=== PATIENT | male | born 1970 | race Hispanic/Latino ===

== ENCOUNTER 2019-06-19 10:46 | Emergency (ER) | payer OTHER, SELFPAY ==
[2019-06-19 10:46] VITALS: BP 159/87; PULSE 59; RESP 16; TEMP 36.2; O2SAT 97; BMI 22.3
--- NOTE | 2019-06-19 10:51 | ED.RN ---
[facility] MADE AWARE THAT PATIENT IS A TEST.
--- NOTE | 2019-06-19 10:54 | RAD_ITS ---
STUDY: X-RAY - LEFT HAND REASON FOR EXAM: Male, 48 years old. Pain and swelling following injury. TECHNIQUE: 3 view(s) of the hand. COMPARISON: None. FINDINGS: Normal radiocarpal articulation. Normal distal radioulnar joint. Normal visualized carpal bones. Normal carpal articulations Normal carpometacarpal articulation of the thumb. Normal second through fifth carpometacarpal joints. Nondisplaced oblique fracture through the midshaft of the third metacarpal. Normal metacarpophalangeal joint of the thumb. Normal interphalangeal joint of the thumb. Normal proximal and distal phalanges of the thumb. Normal metacarpophalangeal joints of the second through fifth fingers. Normal proximal and distal interphalangeal joints of the second through fifth fingers. Normal phalanges of the second through fifth fingers. Soft tissue swelling. RAD/Hand Min 3 Views IMPRESSION: Nondisplaced oblique fracture through the shaft of the third metacarpal with overlying soft tissue swelling. Electronically Signed: Artur Hernandez, at 12:35 EST , Service support ,
--- NOTE | 2019-06-19 10:55 | ED.VIS.GEN ---
History of Present Illness Chief Complaint: Upper Extremity Injury Detail of Chief Complaint: Left hand injury Informant: Patient Onset: Days - 10 days Current Severity: Mild Maximum Severity: Moderate Narrative: Patient presents after injury at work. 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 There apparently was a meat hook that fell from the level of the ceiling onto a table and landed on his left hand. He estimates the hook way to proximal 10 to 15 pounds. Injury occurred 10 days prior to arrival. Past Medical History - Allergies and Home Meds Allergies/Adverse Reactions: Allergies No Known Allergies Allergy (Verified 06/19/19 10:46) Primary Care Physician: NOT,DEFINED [NON-STAFF] - Smoking Status: Unknown if ever smoked Review of Systems General: Denies: Chills, Fever Cardiovascular: Denies: Chest pain Respiratory: Denies: Dyspnea Gastrointestinal: Denies: Vomiting Musculoskeletal: Reports: Swelling, Extremity Pain Skin: Denies: Abrasions Allergy: Denies: Uticaria Physical Exam Vital Signs/Narrative: Vital Signs Temp Pulse Resp BP Pulse Ox 06/19/19 10:46 97.2 F L 59 L 16 159/87 H 97 Inital Vital Signs reviewed: Yes General: Well nourished, Well developed ENT: Moist mucous membranes Neck: Supple Cardiovascular: Regular rate, Regular rhythm Respiratory: No distress Abdomen: Soft Extremities: - - Edema over the dorsal aspect of the left hand. Tenderness worse over the second and third metacarpals. Normal cap refill distally. Good range of motion. No tenderness of the wrist, elbow, or shoulder. Skin: Normal color Neurological: Alert Psychological: Normal affect Diagnostic/Tx/Re-eval Left hand x-ray reveals a diagonal fracture across the mid third metacarpal. Minimal displacement. - Medical Decision Making 5 inch Ortho-Glass was used to apply a ulnar gutter splint. Patient will follow with [facility] as well as Dr. Mckeon for orthopedics. ED Disposition - Plan for ED Patient: Disposition: Home or Assisted Living Diagnosis: Hand fracture Instructions: FRACTURE, Hand (Closed) Referrals: [facility] [GROUP OF PHYSICIANS] - 3-5 Days Ciera Mckeon DO [STAFF PHYSICIAN] - 3-5 Days
[2019-06-19 12:40] VITALS: RESP 18
== END 2019-06-19 12:41 | disposition home or self-care (01) ==
PROVIDERS: Emergency Provider Emergency Medicine
DX: S62.303A Unspecified fracture of third metacarpal bone, left hand, initial encounter for closed fracture (principal); W22.8XXA Striking against or struck by other objects, initial encounter; Y93.9 Activity, unspecified; Y92.9 Unspecified place or not applicable
CPT/HCPCS: 29125; 73130; 99282

== ENCOUNTER → 2019-07-01 14:25 | Outpatient (CLI) | payer OTHER, SELFPAY ==
[2019-06-26 10:27] VITALS: BMI 22.3
--- NOTE | 2019-07-01 14:26 | RAD_ITS ---
STUDY: X-RAY - LEFT HAND REASON FOR EXAM: Male, 48 years old. Evaluate/follow-up fracture. TECHNIQUE: 3 view(s) of the hand. COMPARISON: 06/19/2019. FINDINGS: Exam is limited due to superimposition of contrast material. Otherwise normal radiocarpal articulation. Normal distal radioulnar joint. Normal visualized carpal bones. Normal carpal articulations Normal carpometacarpal articulation of the thumb. Normal second through fifth carpometacarpal joints. Redemonstrated is oblique fracture of the third metacarpal shaft in stable alignment. Remainder of the metacarpal bones are normal. Normal metacarpophalangeal joint of the thumb. Normal interphalangeal joint of the thumb. Normal proximal and distal phalanges of the thumb. Normal metacarpophalangeal joints of the second through fifth fingers. Normal proximal and distal interphalangeal joints of the second through fifth fingers. Normal phalanges of the second through fifth fingers. The soft tissue structures are unremarkable. RAD/Hand Min 3 Views IMPRESSION: Healing fracture of the third metacarpal shaft as described above. Stable alignment. Electronically Signed: Amie George MD at 2:51 EST , Service support ,
== END ==
PROVIDERS: Referring Provider Orthopaedic Surgery; Visit Provider Orthopaedic Surgery
DX: S62.303A Unspecified fracture of third metacarpal bone, left hand, initial encounter for closed fracture (principal)
CPT/HCPCS: 73130

== ENCOUNTER → 2019-07-15 10:22 | Outpatient (CLI) | payer OTHER, SELFPAY ==
[2019-07-15 10:18] VITALS: BMI 22.3
--- NOTE | 2019-07-15 10:23 | RAD_ITS ---
STUDY: X-RAY - LEFT HAND REASON FOR EXAM: Male, 48 years old. Follow-up fracture. TECHNIQUE: 3 view(s) of the hand. COMPARISON: 07/01/2019. FINDINGS: Normal radiocarpal articulation. Normal distal radioulnar joint. Normal visualized carpal bones. Normal carpal articulations Normal carpometacarpal articulation of the thumb. Normal second through fifth carpometacarpal joints. There is a healing fracture involving the third metacarpal bone. Normal metacarpophalangeal joint of the thumb. Normal interphalangeal joint of the thumb. Normal proximal and distal phalanges of the thumb. Normal metacarpophalangeal joints of the second through fifth fingers. Normal proximal and distal interphalangeal joints of the second through fifth fingers. Normal phalanges of the second through fifth fingers. The soft tissue structures are unremarkable. RAD/Hand Min 3 Views IMPRESSION: Healing fracture of the third metacarpal bone. Electronically Signed: Amie George MD at 3:54 EST , Service support ,
== END ==
PROVIDERS: Referring Provider Orthopaedic Surgery; Visit Provider Orthopaedic Surgery
DX: S62.303A Unspecified fracture of third metacarpal bone, left hand, initial encounter for closed fracture (principal)
CPT/HCPCS: 73130